=== PATIENT | male | born 1980 | race Caucasian/White ===

== ENCOUNTER 2022-02-01 10:36 | Emergency (ER) | payer BC ==
[~2022-02-01] VITALS: Ht 188 cm; Wt 74.8 kg
--- NOTE | 2022-02-01 10:46 | NUR ---
Dr Haas at the bedside for MSE.
--- NOTE | 2022-02-01 11:14 | NUR ---
Dr Haas spoke to Ingrid Gauthier ([facility]) regarding pt's plan of care.
--- NOTE | 2022-02-01 11:28 | NUR ---
Patient discharged to home in stable condition. Written and verbal after care instructions given. Patient and pt's verbalize understanding of instructions. Stressed follow up or return to ER for worsening s/s.
[2022-02-01 11:29] VITALS: BP 124/70
== END 2022-02-01 11:29 | disposition home or self-care (01) ==
LOC: ER 10:36
DX: R45.86 Emotional lability (principal); F90.9 Attention-deficit hyperactivity disorder, unspecified type; F32.A Depression, unspecified
CPT/HCPCS: A4663